=== PATIENT | female | born 1980 | race American Indian/Alaskan Native ===

== ENCOUNTER 2018-01-15 12:11 | Emergency (ER) | payer SELFPAY ==
[2018-01-15 12:39] VITALS: BP 113/69
[2018-01-15 13:14] LABS: Bacteria,Urine 2+ /HPF (Negative); Bilirubin,Urine NEG (Negative); Blood,Urine SM (Negative); Color,Urine Yellow (Yellow); Mucus,Urine 1+ /HPF; Protein,Urine <15 mg/dL mg/dL (Negative)
[2018-01-15 13:16] LABS: HCG Qualitative,Urine Negative (Negative)
[2018-01-15 13:24] LABS: Basophils % (Auto) 0.4 % (0.0-1.8); Eosinophils # (Auto) 0.2 K/mm3 (0.0-0.4); Eosinophils % (Auto) 1.5 % (0.0-4.3); Hematocrit 37.7 % (30.3-42.9); Hemoglobin 12.5 gm/dl (10.1-14.3); Lymphocytes # (Auto) 1.8 K/mm3 (1.2-5.4); Lymphocytes % (Auto) 17.9 % (13.4-35.0); Mean Corpuscular HGB Conc 33 % (30-34); Mean Corpuscular Hemoglobin 28 pg (28-32); Mean Corpuscular Volume 84 fl (79-97); Monocytes # (Auto) 0.8 K/mm3 (0.0-0.8); Monocytes % (Auto) 8.4 % (0.0-7.3); Platelet Count 276 K/mm3 (140-440); Red Cell Distribution Width 13.6 % (13.2-15.2)
[2018-01-15 13:43] LABS: BUN/Creatinine Ratio 13; Blood Urea Nitrogen 8 mg/dL (7-17); Calcium 9.2 mg/dL (8.4-10.2); Hemolysis Index 10
[2018-01-15] MEDS ORDERED: FLAGYL PO ONE (13:52)
[2018-01-15] MEDS ORDERED: XYLOCAINE 1% MPF 5 mL INFILTRATI ONE (13:52)
[2018-01-15] MEDS ORDERED: ZITHROMAX PO ONE (13:52)
[2018-01-15] MEDS ORDERED: ROCEPHIN IM ONE (13:52)
--- NOTE | 2018-01-15 13:57 | Emergency Department Report ---
ED Female HPI - General Chief complaint: Urogenital-Female Stated complaint: ABD PAIN/HEADACHES Time Seen by Provider: 01/15/18 13:39 Source: patient Mode of arrival: Ambulatory Limitations: No Limitations - History of Present Illness MD Complaint: vaginal discharge, dysuria, possible STD -: days(s) (3) Location: suprapubic Radiation: non-radiating Severity: moderate Severity scale (0 -10): 5 Quality: cramping, burning Consistency: constant Improves with: none Worsens with: urination Associated Symptoms: vaginal discharge, abdominal pain. denies: vaginal bleeding, nausea/vomiting, fever/chills, headaches, loss of appetite, dysuria, hematuria, rash, shortness of breath, syncope - Related Data Previous Rx's Medication Instructions Recorded Last Taken Type Ibuprofen [Motrin] 600 mg PO Q8H PRN #20 tablet 01/15/18 Unknown Rx Nitrofurantoin Monohyd/M-Cryst 100 mg PO BID #14 capsule 01/15/18 Unknown Rx [Macrobid 100 mg Capsule] Allergies Allergy/AdvReac Type Severity Reaction Status Date / Time No Known Allergies Allergy Unverified 01/15/18 12:34 ED Review of Systems ROS: Stated complaint: ABD PAIN/HEADACHES Other details as noted in HPI Comment: All other systems reviewed and negative ED Past Medical Hx - Social History Smoking Status: Never Smoker Substance Use Type: None - Medications Home Medications: Home Medications Medication Instructions Recorded Confirmed Last Taken Type Ibuprofen [Motrin] 600 mg PO Q8H PRN #20 tablet 01/15/18 Unknown Rx Nitrofurantoin Monohyd/M-Cryst 100 mg PO BID #14 capsule 01/15/18 Unknown Rx [Macrobid 100 mg Capsule] ED Physical Exam - General Limitations: No Limitations General appearance: alert, in no apparent distress - Head Head exam: Present: atraumatic, normocephalic - Eye Eye exam: Present: normal appearance - ENT ENT exam: Present: mucous membranes moist - Neck Neck exam: Present: normal inspection - Respiratory Respiratory exam: Present: normal lung sounds bilaterally. Absent: respiratory distress - Cardiovascular Cardiovascular Exam: Present: regular rate, normal rhythm. Absent: systolic murmur, diastolic murmur, rubs, gallop - GI/Abdominal GI/Abdominal exam: Present: soft, tenderness (suprapubic tenderness), normal bowel sounds. Absent: distended, guarding, rebound - Extremities Exam Extremities exam: Present: normal inspection - Back Exam Back exam: Present: normal inspection - Neurological Exam Neurological exam: Present: alert, oriented X3 - Psychiatric Psychiatric exam: Present: normal affect, normal mood - Skin Skin exam: Present: warm, dry, intact, normal color. Absent: rash ED Course Vital Signs 01/15/18 12:34 Temperature 98.3 F Pulse Rate 97 H Respiratory 18 Rate Blood Pressure 113/69 O2 Sat by Pulse 98 Oximetry ED Medical Decision Making - Lab Data Result diagrams: 01/15/18 12:54 01/15/18 12:54 Lab Results 01/15/18 01/15/18 01/15/18 Range/Units 12:50 12:54 12:54 WBC 9.9 (4.5-11.0) K/mm3 RBC 4.50 (3.65-5.03) M/mm3 Hgb 12.5 (10.1-14.3) gm/dl Hct 37.7 (30.3-42.9) % MCV 84 (79-97) fl MCH 28 (28-32) pg MCHC 33 (30-34) % RDW 13.6 (13.2-15.2) % Plt Count 276 (140-440) K/mm3 Lymph % (Auto) 17.9 (13.4-35.0) % Warrick % (Auto) 8.4 H (0.0-7.3) % Eos % (Auto) 1.5 (0.0-4.3) % Baso % (Auto) 0.4 (0.0-1.8) % Lymph # 1.8 (1.2-5.4) K/mm3 Warrick # 0.8 (0.0-0.8) K/mm3 Eos # 0.2 (0.0-0.4) K/mm3 Baso # 0.0 (0.0-0.1) K/mm3 Seg Neutrophils % 71.8 H (40.0-70.0) % Seg Neutrophils # 7.1 (1.8-7.7) K/mm3 Sodium 139 (137-145) mmol/L Potassium 4.1 (3.6-5.0) mmol/L Chloride 100.8 (98-107) mmol/L Carbon Dioxide 26 (22-30) mmol/L Anion Gap 16 mmol/L BUN 8 (7-17) mg/dL Creatinine 0.6 L (0.7-1.2) mg/dL Estimated GFR > 60 ml/min BUN/Creatinine Ratio 13 % Glucose 74 (65-100) mg/dL Calcium 9.2 (8.4-10.2) mg/dL Urine Color Yellow (Yellow) Urine Turbidity Cloudy (Clear) Urine pH 6.0 (5.0-7.0) Ur Specific Holloway 1.019 (1.003-1.030) Urine Protein <15 mg/dl (Negative) mg/dL Urine Glucose (UA) Neg (Negative) mg/dL Urine Ketones Neg (Negative) mg/dL Urine Blood Sm (Negative) Urine Nitrite Neg (Negative) Urine Bilirubin Neg (Negative) Urine Urobilinogen 2.0 (<2.0) mg/dL Ur Leukocyte Esterase Lg (Negative) Urine WBC (Auto) 166.0 H (0.0-6.0) /HPF Urine RBC (Auto) 9.0 (0.0-6.0) /HPF U Epithel Cells (Auto) 3.0 (0-13.0) /HPF Urine Bacteria (Auto) 2+ (Negative) /HPF Urine Mucus 1+ /HPF Urine HCG, Qual Negative (Negative) - Medical Decision Making Patient be empirically treated for UTI as well as acute cervicitis. Critical care attestation.: If time is entered above; I have spent that time in minutes in the direct care of this critically ill patient, excluding procedure time. ED Disposition Clinical Impression: Cervicitis Acute cystitis Qualifiers: Hematuria presence: without hematuria Qualified Code(s): N30.00 - Acute cystitis without hematuria Disposition: - TO HOME OR SELFCARE Is pt being admited?: No Does the pt Need Aspirin: No Condition: Stable Instructions: Cervicitis (ED), Urinary Tract Infection in Women (ED) Forms: STI Treatment and Prevention
[2018-01-15] MEDS ORDERED: DIFLUCAN PO ONE (15:00)
== END 2018-01-15 15:06 | disposition home or self-care (01) ==
LOC: ED 12:11
DX: N30.00 Acute cystitis without hematuria (principal); N72 Inflammatory disease of cervix uteri
CPT/HCPCS: 36415; 80048; 81001; 81025; 85025; 87086; 96372; 99283; J0696

== ENCOUNTER 2018-02-08 12:25 | Emergency (ER) | payer SELFPAY ==
[2018-02-08 12:33] VITALS: BP 147/90
[2018-02-08 13:46] LABS: Bilirubin,Urine NEG (Negative); Blood,Urine NEG (Negative); Color,Urine Amber (Yellow); Mucus,Urine 3+ /HPF; Urobilinogen,Urine < 2.0 mg/dL (<2.0)
[2018-02-08 13:47] LABS: HCG Qualitative,Urine Negative (Negative)
--- NOTE | 2018-02-08 15:09 | Emergency Department Report ---
Chief Complaint: Urogenital-Female Stated Complaint: FEMALE DISCOMFORT Time Seen by Provider: 02/08/18 14:50 - HPI History of Present Illness: This is a 37-year-old female nontoxic, well nourished in appearance, no acute signs of distress presents to the ED with c/o of vaginal irritation. Patient denies any vaginal pain or swelling. Patient denies any vaginal ulcers or lesions. Patient denies any nausea, vomiting, chest pain, shortness of breathe , fever, chills, headache, back pain, numbness, tingling, stiff neck. Patient denies any vaginal discharge or bleeding. Patient denies any abdominal or pelvic pain. Patient denies any urinary symptoms. Patient denies any allergies or PMH. - Exam Vital Signs: Vital Signs 02/08/18 12:30 Temperature 97.8 F Pulse Rate 84 Respiratory 18 Rate Blood Pressure 147/90 O2 Sat by Pulse 100 Oximetry Physical Exam: GENERAL: The patient is a well-developed, well-nourished in no apparent distress. Patient is alert and acting appropriately for age. Alert and oriented 3, no apparent distress, normal gait, atraumatic. LUNGS: Clear to auscultation. Non labor breathing. No intercostal retractions. Symmetrical with respiration, no wheezing, no rales, or crackles. HEART: Regular rate and rhythm without murmur, rubs or gallops. No reproducible. S1, S2 present, regular rate and rhythm without murmur, no rubs, no gallops. ABDOMEN: Soft, nontender, and nondistended. Positive bowel sounds. No hepatosplenomegaly was noted. No guarding or rebound tenderness, negative epigastric bruit. Negative psoas sign, negative booker sign, negative McBurneys sign MSE screening note: Focused history and physical exam performed. Due to findings the following was ordered: ED Medical Decision Making - Medical Decision Making This is a 37-year-old female that presents with nonmedical emergency. Patient is stable and was examined by me. UA does she UTI. I will treat patient with Bactrim at discharge. Upon examination patient has been treated 2 weeks ago for gonorrhea and chlamydia with Rocephin and azithromycin and Flagyl. Patient is asymptomatic and denies any symptoms besides vaginal irritation. Patient states she just wants to be tested for STD. Intensive Care Anaesthetist has approached patient for a co-pay but patient refused. I will refer the patient [facility] and health Department. At time of discharge, the patient does not seem toxic or ill in appearance. No acute signs of distress noted. Patient agrees to discharge treatment plan of care. No further questions noted by the patient. ED Disposition for MSE Clinical Impression: Possible exposure to STD Disposition: MED SCREENING EXAM-LEFT Is pt being admited?: No Condition: Stable Additional Instructions: Follow-up with a primary care doctor in 3-5 days or if symptoms worsen and continue return to emergency room as soon as possible. Prescriptions: Sulfamethoxazole/Trimethoprim [Bactrim DS TAB] 1 each PO BID #14 tablet Referrals: PRIMARY CAREMD [Primary Care Provider] - 3-5 Days CELIA GARCIA MD [Staff Physician] - 3-5 Days [facility] [Outside] - 3-5 Days [facility] [Outside] - 3-5 Days [facility] [Referring] - 3-5 Days
== END 2018-02-08 16:36 | disposition left against medical advice (07) ==
LOC: ED 12:25
DX: N89.8 Other specified noninflammatory disorders of vagina (principal)
CPT/HCPCS: 81001; 81025; 99283

== ENCOUNTER 2018-02-22 09:01 | Emergency (ER) | payer SELFPAY ==
[2018-02-22 09:09] VITALS: BP 146/96
[2018-02-22 09:42] LABS: Color,Urine Yellow (Yellow); HCG Qualitative,Urine Negative (Negative)
[2018-02-22 09:50] LABS: Mucus,Urine 3+ /HPF
[2018-02-22 09:51] LABS: Bilirubin,Urine Negative (Negative); Blood,Urine Negative (Negative); Protein,Urine <15 mg/dL mg/dL (Negative); Urobilinogen,Urine < 2.0 mg/dL (<2.0)
[2018-02-22] MEDS ORDERED: MOTRIN PO ONE (10:40)
--- NOTE | 2018-02-22 10:42 | Emergency Department Report ---
Juliette Doc - Documentation Documentation: 37 yo female with a past medical history of cholecystectomy and tubal ligation presents to the Hospital complaining of suprapubic abdominal pain 2 weeks. Pain is cramping, intermittent, worse with palpation around a fifth in intensity. 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 She was last sexually active prior to pain onset with her partner and did not use condoms. She specifically for STD. She was seen here February 08 with similar symptoms. Treated with Bactrim for UTI and referred to health department for STD testing. She states that earlier this appointment with the health department is on March 02. chest: cta cv: rrr abd: mild suprapubic tenderness nontoxic appearing ua neg for infection upt neg MSE complete Registration advised pt needs to pay a co-pay pt declined stating her sister came with here with her ID before and received treatment so she was expecting to be treated when she came to the ed. then pt asked for a pain med script until her scheduled apt with the health dept. informed she will have to pay copay for script and treatment she declined advised to take otc med pt does not have an emergency medical condition at this time and advised to f/u for further testing and treatment
== END 2018-02-22 11:39 | disposition left against medical advice (07) ==
LOC: ED 09:01
DX: R10.9 Unspecified abdominal pain (principal); Z53.21 Procedure and treatment not carried out due to patient leaving prior to being seen by health care provider
CPT/HCPCS: 81001; 81025